=== PATIENT | female | born 1950 | race Caucasian/White ===

== ENCOUNTER 2022-09-07 14:40 | Outpatient (CLI) | payer MEDICARE, BC, SELFPAY ==
--- NOTE | 2022-09-07 15:00 | CRLHL7_ITS ---
For Patients: As a result of the Century Cures Act, medical imaging exams and procedure reports are released immediately into your electronic medical record. You may view this report before your referring provider. If you have questions, please contact your health care provider. BILATERAL SCREENING MAMMOGRAM WITH COMPUTER-AIDED DETECTION AND TOMOSYNTHESIS 09/07/2022 TECHNIQUE: These mammographic images have been obtained using full-field digital technique. These mammographic images were interpreted with the benefit of computer-aided detection. Breast Tomosynthesis was used in this interpretation. COMPARISON FILM: 03/11/20; 10/14/18; 10/04/17. BREAST COMPOSITION: There are scattered areas of fibroglandular density. FINDINGS: Possible 1.8 cm mass in the LEFT breast 3 o???clock position, 9 cm from the nipple. No suspicious findings in the RIGHT breast. IMPRESSION: Possible mass LEFT breast. RECOMMENDATION: Recommend MLO and CC spot compression view and a 90-degree lateral view. Additionally, ultrasound may be needed during the diagnostic evaluation. ASSESSMENT: BI-RADS Category 0: Incomplete: Need Additional Imaging Evaluation and/or Prior Mammograms for Comparison [facility] will contact the patient for follow-up. A lay language report of this examination will be provided to the patient. Farheen Hogan M.D. Diagnostic/Breast Radiologist [email or web address] Transcribed: 11:03 a.m. DW/Dictated by: Farheen Hogan MD @ 09/08/2022 8:50:00 AM (Electronically Signed)
== END 2022-09-07 14:41 | disposition home or self-care (01) ==
LOC: MAMMO 14:43
PROVIDERS: Visit Provider Family Medicine
DX: Z12.31 Encounter for screening mammogram for malignant neoplasm of breast (principal); N63.20 Unspecified lump in the left breast, unspecified quadrant
CPT/HCPCS: 77063; 77067

== ENCOUNTER 2022-09-17 11:09 | Outpatient (CLI) | payer MEDICARE, BC, SELFPAY ==
--- NOTE | 2022-09-17 10:45 | CRLHL7_ITS ---
For Patients: As a result of the Cures Act, medical imaging exams and procedure reports are released immediately into your electronic medical record. You may view this report before your referring provider. If you have questions, please contact your health care provider. DIGITAL DIAGNOSTIC LEFT MAMMOGRAM USING TOMOSYNTHESIS AND COMPUTER-AIDED DETECTION LEFT BREAST ULTRASOUND CLINICAL HISTORY: LEFT breast mass/asymmetry. COMPARISON: 03/11/2020, 10/14/2018, 09/07/2022. TECHNIQUE: Digital LEFT mammogram in three projections. Tomosynthesis and CAD utilized. Real-time ultrasound imaging of LEFT breast with imaging documentation. BREAST COMPOSITION: There are areas of scattered fibroglandular density. FINDINGS: 3D spot compression CC/MLO LEFT breast mammograms submitted along with a 3D true lateral LEFT breast mammogram. Persistent suspicious mass is present within the lower outer quadrant of the LEFT breast with lobular margins. No enlarged axillary lymph nodes are suspicious calcifications. Targeted LEFT breast ultrasound performed at 4 o`clock 9 cm from the nipple. In this location there is a lobular heterogeneously hypoechoic solid mass measuring 1.2 x 1.5 x 1.5 cm. IMPRESSION: Suspicious 1.5 cm mass LEFT breast 4 o`clock 9 cm from the nipple. RECOMMENDATIONS: Ultrasound-guided core needle biopsy. Results and recommendations discussed with the patient. BI-RADS Category 4: Suspicious A lay language report of this examination will be provided to the patient. Dictated by Jun Martinez MD @ 09/17/2022 12:26:31 PM [email or web address]/Dictated by: Jun Martinez MD @ 09/17/2022 12:26:00 PM (Electronically Signed)
--- NOTE | 2022-09-17 11:15 | CRLHL7_ITS ---
For Patients: As a result of the Cures Act, medical imaging exams and procedure reports are released immediately into your electronic medical record. You may view this report before your referring provider. If you have questions, please contact your health care provider. PLEASE SEE DIGITAL DIAGNOSTIC LEFT MAMMOGRAM PERFORMED SAME DAY CRL:[email or web address] falcon/Dictated by: Jun Martinez MD @ 09/17/2022 12:26:00 PM (Electronically Signed)
== END 2022-09-17 11:10 | disposition home or self-care (01) ==
LOC: MAMMO 11:10
PROVIDERS: Visit Provider Family Medicine
DX: N63.10 Unspecified lump in the right breast, unspecified quadrant (principal); R92.8 Other abnormal and inconclusive findings on diagnostic imaging of breast
CPT/HCPCS: 76642; 77065; G0279

== ENCOUNTER 2022-09-21 11:08 | Outpatient (CLI) | payer MEDICARE, BC, SELFPAY ==
--- NOTE | 2022-09-21 11:15 | CRLHL7_ITS ---
For Patients: As a result of the Century Cures Act, medical imaging exams and procedure reports are released immediately into your electronic medical record. You may view this report before your referring provider. If you have questions, please contact your health care provider. ULTRASOUND-GUIDED BREAST BIOPSY AND POST-BIOPSY DIGITAL MAMMOGRAM FOR BIOPSY MARKER PLACEMENT CLINICAL HISTORY: LEFT breast mass. COMPARISON STUDIES: 09/17/2022. TECHNIQUE: Real-time ultrasound with image documentation was used for targeting the breast lesion. Core biopsy specimens were obtained using an automated gun with a 10-gauge vacuum assisted biopsy needle. Post-biopsy CC and ML digital mammograms were obtained to document position of the biopsy marker. CONSENT and TIME OUT: The procedure, risks, and alternatives were explained to the patient and a consent was signed. Alpha Protocol was followed including pre-procedure verification that relevant information/documentation was available, reviewed and properly matched to the patient; consent accurate and complete; and equipment and supplies available. Time Out was conducted just prior to starting procedure to verify the four required elements: patient identity, correct side/site marked (if applicable), procedure, relevant images/results properly labeled and displayed (if applicable). PROCEDURE: The patient was positioned supine on the ultrasound table. The breast was prepped with Betadine. 8 cc of 1 percent lidocaine used for local anesthesia. Core samples were obtained. A sterile metal biopsy clip was placed percutaneously to fely the lesion position within the breast. The specimens were placed in 10% formalin and sent to the pathology department. Pressure was held on the biopsy site until all bleeding subsided. The skin incision was closed with Steri-Strips. An ice pack was positioned over the biopsy site. Post-biopsy instructions were reviewed with the patient, and a written copy was given to her. LATERALITY: LEFT breast. LESION: Lobular hypoechoic solid mass measuring 1.2 x 1.5 x 1.5 cm at 4 o`clock 9 cm from the nipple. SUSPICION FOR MALIGNANCY: High. NUMBER OF SAMPLES: 5. BIOPSY CLIP SHAPE: Oval. PROXIMITY OF CLIP TO TARGET: Within the lesion. IMPRESSION: Ultrasound-guided breast biopsy. When the pathology report is available, an addendum to this report will be made. ACR not applicable Dictated by Jun Martinez MD @ 09/21/2022 1:22:30 PM/damir FLOR/Dictated by: Jun Martinez MD @ 09/21/2022 1:22:00 PM ADDENDUM: Pathology consistent with invasive ductal carcinoma, grade I/III. This is concordant. Appropriate action recommended. Dictated by: Jun Martinez MD @09/23/2022 10:09:49 AM / RISHABH:[email or web address] (Electronically Signed)
--- NOTE | 2022-09-21 12:00 | CRLHL7_ITS ---
For Patients: As a result of the Century Cures Act, medical imaging exams and procedure reports are released immediately into your electronic medical record. You may view this report before your referring provider. If you have questions, please contact your health care provider. PLEASE SEE LEFT ULTRASOUND-GUIDED BIOPSY OF SAME DAY. CRL:[email or web address] FLOR/Dictated by: Jun Martinez MD @ 09/21/2022 12:24:00 PM (Electronically Signed)
== END 2022-09-21 11:09 | disposition home or self-care (01) ==
PROVIDERS: Visit Provider Family Medicine
DX: N63.20 Unspecified lump in the left breast, unspecified quadrant (principal); C50.912 Malignant neoplasm of unspecified site of left female breast; R92.8 Other abnormal and inconclusive findings on diagnostic imaging of breast
CPT/HCPCS: 19083; 77065; 88305; 88360; 88361; A4648; A4649

== ENCOUNTER 2024-11-21 14:45 | Outpatient (CLI) | payer MEDICARE, SELFPAY | END 2024-11-21 14:46 | disposition home or self-care (01) | PROVIDERS: PCP Family Medicine; Visit Provider Family Medicine | DX: M17.12 Unilateral primary osteoarthritis, left knee (principal); M25.562 Pain in left knee | CPT/HCPCS: 64454 ==

== ENCOUNTER 2024-12-05 13:07 | Outpatient (CLI) | payer MEDICARE, SELFPAY ==
--- OUTSIDE RECORDS SUMMARY | 2024-12-06 00:45 | XMS_ITS | Clinical Summary ---
Author Organization [facility] Address [address] [place] [address] Care Team Providers Care Fire Support Specialist Name Role Phone Shy Byrd MD Primary Care Provider [phone] Rox Pereyra MD Unavailable [phone] Za Sánchez NP Unavailable Lisa Loera RN Unavailable Allergies Active Allergy Reactions Criticality Noted Date Comments Atorvastatin Myalgia 01/25/2010 Erythromycin Vomiting 10/15/2008 Mold Extracts Runny Nose 05/16/2015 Also allergy headache Tree And Shrub Pollen Runny Nose 11/03/2017 Medications [id number]-[id number]-[id number] sh Oil 1,000 mg (120 mg-180 mg) cap Take 1 Capsule (1,000 mg) by mouth. 0 10/03/19 23 Active cetirizine (ZyrTEC) 10 mg tablet Take 10 mg by mouth once daily. Active ascorbic acid, vitamin C, (Vitamin C) 500 mg tablet Take 500 mg by mouth once daily. Active cholecalciferol, Vitamin D3, (Vitamin D-3) 5,000 unit tab tablet Take by mouth once daily. Active LYSINE ORAL Take 500 mg by mouth. Active calcium carbonate (CALCIUM 500 ORAL) Take 1,000 mg by mouth. Active ibuprofen (ADVIL; MOTRIN) 600 mg tabletIndications: Infiltrating ductal carcinoma of left breast (HC),Breast cancer (HC) Take 1 Tablet (600 mg) by mouth every 6 hours if needed for Pain. Maximum of 3200 mg in 24 hours. 30 Tablet 3 1:01 PM CDT 10/13/19 23 Active triamcinolone (ARISTOCORT) 0.5 % ointmentIndication s:Dermatitis apply twice daily as needed to itchy skin spots 15 g 5 11/21/19 23 Active amLODIPine (NORVASC) 5 mg tabletIndications: Hypertension Take 1 Tablet (5 mg) by mouth once daily. 90 Tablet 3 11/29/19 24 Active rosuvastatin (CRESTOR) 5 mg tabletIndications: Hyperlipidemia, unspecified hyperlipidemia type TAKE 1 TABLET BY MOUTH EVERY WEDNESDAY AND WEDNESDAY 24 Tablet 11/29/19 24 Active estradioL (Estrace) 0.01% (0.1 mg/g) vaginal creamIndications:A trophic vaginitis Use 1/2-1 gram vaginally once daily as needed for vaginal dryness. 42.5 g 3 02/29/20 24 Active famotidine (PEPCID) 20 mg tabletIndications: Hiatal hernia with GERD Take 1 Tablet (20 mg) by mouth once daily. 90 Tablet 3 02/29/20 24 Active tamoxifen (NOLVADEX) 20 mg tabletIndications: Infiltrating ductal carcinoma of left breast (HC) Take 1 Tablet (20 mg) by mouth once daily. 90 Tablet 3 03/01/20 24 Active fluticasone (50 mcg per actuation) nasal solution (FLONASE)Indicatio ns:Allergic rhinitis, unspecified seasonality, unspecified trigger,Sinus congestion INHALE 2 SPRAYS IN BOTH NOSTRILS ONCE DAILY 16 g 07/10/19 25 Active Additional Information Patient taking differently:2 [place] Both Nostrils DAILY,not using, Reported on 10/02/2024 medication order composer Glucosamine Chondroitin Supplement 09/08/19 25 Active oxyCODONE-acetamin ophen (Percocet) 5-325 mg per tabletIndications: Chronic pain of left knee Take 1 Tablet by mouth 3 times daily if needed for Pain. Max acetaminophen dose: 4000mg in 24 hrs. 12 Tablet 09/08/19 25 Active ipratropium 42 mcg (0.06 %) nasal sprayIndications:S inus congestion Inhale 2 Sprays in both nostrils three times daily. 15 mL 10/03/19 25 Active Active Problems Problem Noted Date Diagnosed Date Serrated adenoma of colon 03/19/2021 Overview (03/21/2021): Repeat colonoscopy in 5 years Tubular adenoma 03/19/2021 Overview (03/21/2021): Repeat colonoscopy in 5 years Hiatal hernia 05/15/2020 Sensorineural hearing loss, bilateral 05/20/2015 Allergic rhinitis 08/12/2011 Hyperlipidemia Breast cancer Cancer Staging:Pathologic:Stage IA(pT2, pN0, cM0, G1, ER+, OH+, HER2-, Oncotype DX score: 17) - Signed by Rox Pereyra MD on 11/14/2022 Overview (08/12/2011): 2000 T1 N0 M0 s/p lumpectomy and XRT Atrophic vaginitis Resolved Problems Problem Noted Date Diagnosed Date Resolved Date Infiltrating ductal carcinoma of left breast 3 11/20/2022 Overview (09/23/2022): diagnosed 09/2022 Second breast cancer. OMARI (obstructive sleep apnea) 02/03/2010 08/12/2011 Encounter for screening colonoscopy 08/11/2021 Encounters Date Type Department Care Team Description 12/05/2024 2:00 PM CDT Procedure Only [address] [phone] Rubin Rice MD Procedure (Left knee [place] RFA) 11/30/2024 Travel 11/24/[address] [address] Rubin Rice MD Form (Health History Form) 11/21/2024 3:20 PM CDT Procedure Only [address] [phone] Rubin Rice MD Procedure (Left knee genicular nerve block) 11/19/2024 Travel 11/17/[address] [phone] Shy Byrd MD Form 11/07/2024 Medical Messaging [facility] [address] [place] [address] Rubin Rice MD Knee pain treatment options 10/25/2024 Medical Messaging [facility] [address] [place] [phone] Shy Byrd MD PT referral 10/19/2024 Orders Only [facility] Scanner 1 scan: (1-Ord) TAREEN DERM, SKIN LESION, BX BY SHAVE METHOD, 10/19/2024 10/02/2024 8:20 AM CDT Telemedicine [facility] [address] [place] [address] Zabrina Topete MBBS Telehealth (Sinus infection.) 09/30/2024 Travel 09/07/2024 3:40 PM CDT Office Visit [facility] [address] [place] [address] Rubin Rice MD Procedure (Left knee - 3rd Euflexxa injection) 09/07/2024 Travel from Last 3 Months Immunizations Immunization Administration Dates Next Due COVID-19 vaccine (Moderna 100mcg/0.5mL) RAMON NICHOLAS 07/19/2020 DT (Age < 7 years) 09/23/2002 Influenza RIV4 (Age 18+ Year s) PRESERV FREE 04/13/2019 Influenza, High-dose Inactivated 05/02/2018,04/14 Influenza, High-dose Quadriv alent Inactivated 03/13/2023,04/03/2022,03/27/2020 Influenza, IIV3 (Age 6-35 mos) 05/01/2011 Influenza, IIV3 (Age >=3 years) 03/28/20 14,06/21/2013,05/23/2012,05/01,06/06/2010,04/10/2008,04/21/2007 ,04/19/2006 Influenza, IIV4 03/25/2021,04/13/2019,05/01/2015 Influenza, Inactivated AIIV4 (Age 65+ Years) Preserv Free 03/27/2020 Influenza, Inactivated IIV3 (Age 65+ Years) Preserv Free 05/07/2024 Pneumococcal Poly,23-Valent (Pneumovax) 09/12/2018 Pneumococcal conj 13-Valent (Prevnar 13) 06/20/2016 RSV, Bivalent Vaccine Recons tituted (Abrysvo 120MCG/0.5mL) 03/13/2023 Td (Age >=7 Years) 02/14/2007 Tdap 05/22/2023,01/10/2013,10/02/2002 Zoster (Shingrix-RZV, recombinant) 12/09/2018, Zoster (Zostavax-ZVL, live) 12/14/2016 Family History Medical History Relation Name Comments Lymphoma Brother 1 Ken Heart Disease Father Cancer-breast Maternal Aunt Heart Disease Maternal Grandfather Heart Disease Maternal Grandmother Hyperlipidemia Mother Other Mother periphereal vas cular disorder Alcohol/Drug Paternal Grandfather Relation Name Status Comments Brother 1 Ken Alive 2 Brother 2 Alive Daughter Alive Father Alive Maternal Aunt Maternal Grandfather Maternal Grandmother Mother (Age 87) Paternal Grandfather Paternal Grandmother Sister Alive 1 Social History Tobacco Use Types Packs/Day Years Used Date Smoking Tobacco: Never Passive Smoke Exposure: Never Smokeless Tobacco: Never Tobacco Cessation:Counseling Given: Yes Alcohol Use Standard Drinks/Week Comments Yes 0 (1 standard drink = 0.6 oz pur e alcohol) rare PHQ-2 Answer Date Recorded PHQ-2 TOTAL SCORE 0 11/29/2023 Social Connections Answer Date Recorded Frequency of Communication with Friends and Fami ly 0 03/30/2023 Financial Resource Strain Answer Date R ecorded Difficulty of Paying Living Expenses 3 03/30/2023 Difficulty of Paying Living Expenses Not on file 03/30/2023 Food Insecurity Answer Date Recorded Worried About Running Out of Food in the Last Ye ar 1 03/30/2023 Transportation Needs Answer Date Record ed Lack of Transportation (Medical) 1 03/30/2023 Housing Stability Answer Date Recorded Unable to Pay for Housing in the Last Year 1 03/30/2023 Comments No Sex and Gender Information Value Date Recorded Sex Assigned at Not on file Legal Sex Female 5:24 AM CHEF'S ASSISTANT Gender Identity Not on file Sexual Orientation Not on file 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 on file Not on file Not on fi le Obstetrics History Para Term AB IAB SAB Ectopic Multiple Livin g Live Births 1 1 1 1 Date Outcome GA Total Labor Labor/2nd/3rd Weight Sex Type Anes PTL Janine A1 A5 Name Clin Term Last Filed Vital Signs Vital Sign Reading Time Taken Comments Blood Pressure 133/84 09/07/2024 3:48 PM CDT Pulse 92 09/07/2024 3:48 PM CDT Temperature 36.6 C (97.9 F) 09/07/2024 3:48 PM CDT Respiratory Rate 18 09/04/2024 10:2 7 AM CDT Oxygen Saturation 98% 09/07/2024 3:48 PM CDT Inhaled Oxygen Concentration - - Weight 81.6 kg (179 lb 14.4 oz) 025 10:27 AM CDT Height 162 cm (5' 3.78) 02/29/2024 11: 24 AM CDT Body Mass Index 31.09 02/29/2024 11:24 AM CDT Plan of Treatment Upcoming Encounters Date Type Department Care Team (Late st Contact Info) Description 12/12/2024 2:30 PM CDT Office Visit [facility] [address] [place] [phone] Shy Byrd MD [address] [place] [address] 03/20/2025 11:15 AM CDT Office Visit [facility] [address] [place] [address] Za Sánchez, BRIDGER [address] [place], [place] [phone] Health Maintenance Due Date Last Done Comments COVID-19 vaccine series (8 - Mixed Product risk season) 2024 05/07/2024, 03/13/2023, 10/28/2022, Additional history exists Depression screening for age 12+ 11/28/2024 11/29/2023, 10/25/2023, 11/20/2022, Additional history exists Medicare Wellness for age 65+ 11/29/2024 11/29/2023, 11/20/2022, 08/11/2021, Additional history exists BMI (ht and wt on same day) for age 18+ 02/28/2025 02/29/2024, 10/25/2023, 11/20/2022, Additional history exists Mammogram for age 45-75 08/28/2025 08/29/19 25, 08/23/2023, 09/17/2022, Additional history exists Colonoscopy through age 75 03/19/202603/19, 07/31/2010, 07/31/2010 Lipids for age 45-75 11/24/2028 11/25/2023, 11/18/2022, 08/06/2021, Additional history exists Tetanus booster 05/22/2033 05/22/2023, 12/14, 02/14/2007, Additional history exists Pneumococcal series for age 50+ Completed 09/12/2018, 06/20/2016 Zoster (shingles) series for age 50+ Completed 12/09/2018, 09/12/2018, 12/14/2016 Hepatitis C screening for age 18-79 Completed 08/06/2020 DEXA/DXA scan for age 65+ Completed 11/19/2022, 06/2018 RSV vaccine for adults or Completed 03/13/2023 Tdap Completed 05/22/2023, 12/14, 10/02/2002 Influenza Vaccine Completed 05/07/2024, , 03/27/2020, Additional history exists Hepatitis B series for 19+ Aged Out N o longer eligible based on patient's age to complete this topic Procedures Procedure Name Priority Date/Time Associated Diagnosis Comments AMB CONSULT FOR INJECTION Routine 11/21/2024 12:00 AM CDT Arthritis of left knee Chronic pain of left knee SCAN-OPERATIVE/PROC EDURE REPORT 10/19/2024 12:00 AM CDT XR MAMMO YO BILAT SCREEN Routine 08/28/2024 10:36 AM CDT Encounter for screening mammogram for malignant neoplasm of breast LIPID PANEL W REFLEX MEASURED LDL Routine 11/25/2023 10:22 AM CDT Hyperlipidemia, unspecified hyperlipidemia type XR DXA BONE DENSITY 2 SITES AXIAL Routine 11/19/2022 2:14 PM CDT Infiltrating ductal carcinoma of left breast (HC) COLONOSCOPY 03/19/2021 9:57 AM CDT HCV RNA QUANT Routine 08/06/2020 9:35 AM CHEF'S ASSISTANT Encounter for hepatitis C screening test for low risk patient from Last 3 Months or Most Recently Relevant to Health Maintenance Results * AMB CONSULT FOR INJECTION (11/21/2024 12:00 AM CDT) Rubin Rice MD AMB REFERRAL/CONSULT ORD F inal Result * SCAN-OPERATIVE/PROCEDURE REPORT (10/19/2024 12:00 AM CDT) us Scanner OTHER Final Result * XR MAMMO YO BILAT SCREEN (08/28/2024 10:36 AM CDT) Anatomical Region Laterality Modality BREASTS, Breast Left, Breast Right Bilateral Mammography Impressions 08/30/2024 10:33 AM CDT There is no radiographic evidence for malignancy. Recommend annual mammograms. MAMMOGRAM ASSESSMENT: ACR 2 Benign PATIENTS: You will also receive a letter with your examination results in an easy to read format. If you have questions about your results, please contact your referring provider. Narrative 08/30/2024 10:33 AM CDT For Patients: As a result of the 21st Century Cures Act, medical imaging exams and procedure reports are released immediately into your electronic medical record. You may view this report before your referring provider. If you have questions, please contact your health care provider. XR MAMMO YO BILAT SCREEN [[id number]] CLINICAL HISTORY: This is an asymptomatic 73 y.o. patient. INDICATION FOR EXAM: Mammogram Screening. TECHNIQUE: CC and MLO views were obtained. This study was evaluated with the assistance of Computer-Aided Detection. Breast Tomosynthesis was used in interpretation. COMPARISON FILMS: Yes 08/23/23 FINDINGS: The breasts are heterogeneously dense, which may obscure small masses. No suspicious masses or microcalcifications. There are benign appearing calcifications., There are post surgical changes of left breast, and There are post treatment changes of left breast. Rox Pereyra MD MAMMO Final Resu lt * (ABNORMAL) LIPID PANEL W REFLEX MEASURED LDL (11/25/2023 10:22 AM CDT) CHOLESTEROL,TOTAL 207(H) 100 - 199 mg/dL 11/25/2023 11:22 AM [facility] Comment: Cholesterol, Total Reference Ranges Desirable <200 mg/dL Borderline 200-239 mg/dL High >=240 mg/dL TRIGLYCERIDES 202(H) <150 mg/dL 11/25/2023 11:22 AM [facility] HDL CHOLESTEROL 62 >40 mg/dL 11:22 AM [facility] NON-HDL CHOLESTEROL 145(H) <145 mg/dl 11/25/2023 11:22 AM [facility] CHOL/HDL RATIO 3.34 <4.50 11/25/2023 11:22 AM [facility] LDL CHOLESTEROL 105 <=130 mg/dL 11/25/2023 11:22 AM [facility] VLDL CHOLESTEROL 40(H) <=30 mg/dL 11/25/2023 11:22 AM [facility] PROVIDER ORDERED STATUS RANDOM 11/25/2023 11:22 AM [facility] Blood BLOOD SPECIMEN / Unknown Venipuncture / Unknown 11/25/2023 10:22 AM CDT 11/25/2023 10:25 AM CDT Shy Byrd MD CHEMISTRY Final Resu lt [facility] [address] [place] [address] * (ABNORMAL) XR DXA BONE DENSITY 2 SITES AXIAL (11/19/2022 2:14 PM CDT) Anatomical Region Laterality Modality Spine, HIPS, HIPL, HIPR Computed Radiography Impressions 11/19/2022 4:16 PM CDT Normal bone density. RECOMMENDATIONS: The National Osteoporosis Foundation recommends pharmacologic treatment for patients with T-scores of -2.5 or less, patients with prior history of fragility fractures, or patients with 10-year probability of greater than 3% at hips or greater than 20% of suffering major osteoporotic fractures. Recommend continued optimization of calcium and vitamin D intake through dietary means and/or supplementation and regular exercise. Repeat scan recommended in 2 years. Narrative 11/19/2022 4:16 PM CDT For Patients: Results are automatically released to your [employer] account once available, in compliance with federal regulations. This means that you may see your results before your provider has had a chance to review them. Please allow 2-3 business days for your provider to comment on the results. XR DXA Bone Mineral Density (BMD) EXAM LOCATION: [facility] [address] [id number] PATIENT NAME: Sarah Allen DATE OF : 1950 EXAM DATE: 11/19/2022 REQUESTING PROVIDER: Rox Pereyra MD GENDER AT : female HEIGHT: 5' 4 (10/12/2022) WEIGHT: 181 lb 8 oz (11/12/2022) MENOPAUSAL STATUS: Postmenopausal RACE/ETHNICITY: White RISK FACTORS: Breast Cancer, Hormonal Therapy for Breast Cancer CURRENT MEDICATION FOR BONE LOSS: NONE INDICATION: Breast cancer, on aromatase inhibitor COMPARISON DATE(S): 2018 DXA scans are compared to prior studies for a patient only when the two (or more) studies were performed on the same scanner. It is not possible to compare data generated on one scanner to data from another because there are not standards in DXA equipment. This applies even if the two scanners are made by the same laborer vineyard. PROCEDURE: Dual-energy x-ray absorptiometry performed with routine technique. Reporting is completed in the form of a T-score. The T-score represents the standard deviation from peak bone mass based on young healthy adult. A Z-score is used for diagnosis in premenopausal women, and for men under the age of 50. FINDINGS: RESULT LUMBAR SPINE L1 - L4(L3) BMD: 1.073 g/cm2 T-Score: - 0.8 Change from prior in 2019: Decrease 2.1%. RESULTS FEMUR Left femoral neck BMD: 0.968 g/cm2 T-Score: - 0.5 Change from prior in 2019: Increase 1.6%. Right femoral neck BMD: 0.993 g/cm2 T-Score: - 0.3 Change from prior in 2019: Decrease 2.8%. Left hip BMD: 1.031 g/cm2 T-Score: + 0.2 Change from prior in 2019: Decrease 3.3%. Right hip BMD: 1.066 g/cm2 T-Score: + 0.5 Change from prior in 2019: Decrease 2.8%. WHO criteria: Normal: T-score at or above -1 SD Osteopenia: T-score between -1.1 and -2.4 SD Osteoporosis: T-score at or below -2.5 SD Rox Pereyra MD DEXA Final Resu lt * COLONOSCOPY (03/19/2021 9:57 AM CDT) 03/19/2021 9:57 AM CDT Narrative Transcriptions Glynn May MD - 03/19/2021 11:00 AM CDT Patient Name: Sarah Allen Procedure Date: 03/19/2021 Gender: Female Date of : 1950 Admit Type: Ambulatory Procedure: Colonoscopy Proceduralist: Glynn May [facility] Indications/Pre-Op Diagnosis: Screening for colorectal malignantneoplasm Medications: Midazolam 4 mg IV, Fentanyl 75 microgramsIV Procedure Description: The patient had risks, benefits and alternatives explained to andgave informed consent. The patient had a stable cardiopulmonary status and judged an adequate candidate for conscious sedation. The colonoscope was passed through the anus and advanced to thececum, identified by appendiceal orifice and ileocecal valve. Thecolonoscopy was performed without difficulty. The patient tolerated the procedure well. The quality of the bowel preparation was good. The ileocecal valve, appendiceal orifice, and rectum were photographed. Complications: No immediate complications. Estimated Blood Loss & Specimen: Estimated blood loss: none. Specimen collected - Yes and sent to Laboratory Findings: The perianal and digital rectal examinations were normal. An 8 mm polyp was found in the distal ascending colon. The polyp was sessile. The polyp was removed with a hot snare. Resection andretrieval were complete. A 4 mm polyp was found in the hepatic flexure. The polyp was sessile. The polyp was removed with a hot snare. Resection and retrieval were complete. The retroflexed view of the distal rectum and anal verge was normaland showed no anal or rectal abnormalities. Impressions/Post-Op Diagnosis: - One 8 mm polyp in the distal ascending colon, removed with a hot snare. Resected and retrieved. - One 4 mm polyp at the hepatic flexure, removed with a hot snare. Resected and retrieved. Recommendation: - Discharge patient to home. - Resume previous diet. - Continue present medications. - Await pathology results. - Repeat colonoscopy in 5 years for surveillance. Moderate Sedation: Moderate (conscious) sedation was administered by the endoscopy nurse and supervised by the endoscopist. The following parameters were monitored: oxygen saturation, heart rate, respiratory rate, adequacyof pulmonary ventilation and reponse to care. Please refer to the patient's medical record flowsheets for moderate sedation details. Moderate (conscious) sedation was administered by the endoscopy nurse and supervised by the endoscopist. The patient's oxygen saturation, heart rate, blood pressure and response to care were monitored. Total physician intraservice time was 33 minutes. Glynn May, 03/19/2021 11:00:33 AM This report has been signed electronically. Note Initiated On: 03/19/2021 9:57 AM us Glynn May MD PROCEDURE ORD Final Res ult * HCV RNA QUANT (08/06/2020 9:35 AM CHEF'S ASSISTANT) HCV RNA RT-PCR HCV RNA not detected HCV RNA not detected IU/mL 08/12/2020 1:22 PM CHEF'S ASSISTANT [facility] Blood BLOOD SPECIMEN / Unknown Venipuncture / Unknown 08/06/2020 9:35 AM CHEF'S ASSISTANT 08/06/2020 9:38 AM CHEF'S ASSISTANT Narrative [facility] - 08/12/2020 1:22 PM CHEF'S ASSISTANT Method: Heydi HCV Test us Shy Byrd MD SEND OUTS Final Resu lt [facility] 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 Healthcare Directive 08/11/2021 022 * Full Code (Latest Code Status on File) Date Activated Date Inactivated Comments 10/12/2022 6:35 AM 10/12/2022 4:05 PM Question Answer Comments Code Status Discussion: Reviewed Preferences * Full Code Date Activated Date Inactivated Comments 03/19/2021 9:08 AM 03/19/2021 1:37 PM Question Answer Comments Code Status Discussion: Per Existing Order Care Teams Fire Support Specialist Relationship Specialty Start Date End Date Shy Byrd MD [address] [facility] [place] [address] PCP - General Family Practice 03/19/14 Rox Pereyra MD [address] [facility] [place] [address] Medical Oncologist Oncology 11/25/22 Za Sánchez NP [address] [facility] [place] [address] Nurse Practitioner Oncology 11/25/22 Lisa Loera, RN [address] [place] [address] Nurse Navigator - Oncology Registered Nurse 11/30/22
== END 2024-12-05 13:08 | disposition home or self-care (01) ==
LOC: INJ CL 13:08
PROVIDERS: PCP Family Medicine; Visit Provider Family Medicine
DX: M17.12 Unilateral primary osteoarthritis, left knee (principal); M25.562 Pain in left knee; G89.29 Other chronic pain
CPT/HCPCS: 64624; J2250; J3010